=== PATIENT | female | born 1965 | race Hispanic/Latino ===

== ENCOUNTER 2018-11-05 15:49 | Emergency (ER) | payer OTHER ==
[2018-11-05 16:00] VITALS: RESP 16
--- NOTE | 2018-11-05 16:59 | US ---
Date of service: 11/05/2018 PROCEDURE: Bilateral lower extremity venous duplex Doppler. HISTORY: pain COMPARISON: None available. TECHNIQUE: Bilateral common femoral, superficial femoral, popliteal and posterior tibial veins were evaluated. Flow was assessed with color Doppler, compressibility, assessment of phasic flow and augmentation response. FINDINGS: COMMON FEMORAL VEIN: Right CFV: Unremarkable. Left CFV: Unremarkable. SUPERFICIAL FEMORAL VEIN: Right SFV: Unremarkable. Left SFV: Unremarkable. POPLITEAL VEIN: Right Popliteal: Unremarkable. Left Popliteal: Unremarkable. POSTERIOR TIBIAL VEIN: Right PTV: Unremarkable. Left PTV: Unremarkable. OTHER FINDINGS: None. IMPRESSION: No evidence of deep venous thrombosis.
--- NOTE | 2018-11-05 17:16 | ED PDOC ---
Lower Extremity Pain/Injury Time Seen by Provider: 11/05/18 15:58 Chief Complaint (Nursing): Lower Extremity Problem/Injury Chief Complaint (Provider): Lower Extremity Problem History Per: Patient History/Exam Limitations: no limitations Onset/Duration Of Symptoms: Days (2x) Current Symptoms Are (Timing): Still Present Severity: Moderate Additional Complaint(s): 53 year old female with a past medical history of hypertension presents to the ED for an evaluation of atraumatic pain behind the left knee that started yesterday. Patient was seen in a [facility] and was advised to be evaluated in the ED, prompting ED visit today. Patient denies having chest pain, shortness of breath, history of DVT or PE, hemoptysis, recent prolonged limb immobilization, recent surgeries, trauma, fevers, or rashes. PMD: None provided. Past Medical History Reviewed: Historical Data, Nursing Documentation, Vital Signs Vital Signs: Last Vital Signs Temp 98.0 F 11/05/18 15:55 Pulse 61 11/05/18 15:55 Resp 16 11/05/18 15:55 BP 136/70 11/05/18 15:55 Pulse Ox 97 11/05/18 15:55 CORY Report Viewed: Yes - Medical History PMH: HTN, Migraine - Surgical History Surgical History: Hernia Repair - Family History Family History: States: No Known Family Hx - Social History Current smoker - smoking cessation education provided: No Drugs: Denies - Immunization History Hx Tetanus Toxoid Vaccination: No Hx Influenza Vaccination: No Hx Pneumococcal Vaccination: No - Home Medications Home Medications: Ambulatory Orders Medication Instructions Recorded Amoxicillin/Clavulanate [Augmentin 1 tab PO BID #14 tab 12/21/15 875 MG-125 MG] - Allergies Allergies/Adverse Reactions: Allergies Allergy/AdvReac Type Severity Reaction Status Date / Time No Known Allergies Allergy Verified 12/21/15 13:18 Review of Systems ROS Statement: Except As Marked, All Systems Reviewed And Found Negative Constitutional: Negative for: Fever Cardiovascular: Negative for: Chest Pain Respiratory: Negative for: Shortness of Breath, Hemoptysis Musculoskeletal: Positive for: Other (pain behind left knee) Skin: Negative for: Rash Physical Exam - Reviewed Nursing Documentation Reviewed: Yes Vital Signs Reviewed: Yes - Physical Exam Appears: Positive for: Well, Non-toxic, No Acute Distress Head Exam: Positive for: ATRAUMATIC, NORMOCEPHALIC Skin: Positive for: Normal Color, Warm, Dry Pulses-Dorsalis Pedis (L): 2+ Pulses-Dorsalis Pedis (R): 2+ Extremity: Positive for: Other (bilateral lower extremities: (-) tenderness, (-) swelling, (-) deformities, (-) lesions. Full ROM actively of bilateral knees.) Neurological/Psych: Positive for: Awake, Alert, Oriented (3x) - ECG O2 Sat by Pulse Oximetry: 97 (RA) Pulse Ox Interpretation: Normal - CT Scan/US US duplex lower extrm vein bilat Other Rad Studies (CT/US): Read By Radiologist, Radiology Report Reviewed (see MDM note) Medical Decision Making Medical Decision Makin:58 Initial impression: 53 year old female with atraumatic knee pain Initial plan: * US duplex lower extrm vein bilat * reevaluation 16:56 US duplex lower extrm vein bilat read and reviewed by radiologist FINDINGS: COMMON FEMORAL VEIN: Right CFV: Unremarkable. Left CFV: Unremarkable. SUPERFICIAL FEMORAL VEIN: Right SFV: Unremarkable. Left SFV: Unremarkable. POPLITEAL VEIN: Right Popliteal: Unremarkable. Left Popliteal: Unremarkable. POSTERIOR TIBIAL VEIN: Right PTV: Unremarkable. Left PTV: Unremarkable. OTHER FINDINGS: None. IMPRESSION: No evidence of deep venous thrombosis. Scribe Attestation: Documented by Bri Luis, acting as a scribe for Jerad Nair Provider Scribe Attestation: All medical record entries made by the Scribe were at my direction and personally dictated by me. I have reviewed the chart and agree that the record accurately reflects my personal performance of the history, physical exam, medical decision making, and the department course for this patient. I have also personally directed, reviewed, and agree with the discharge instructions and disposition. Disposition - Clinical Impression Clinical Impression: Leg pain - Patient ED Disposition Is Patient to be Admitted: No - Disposition Referrals: [email or web address] [Outside] Disposition: Routine/Home Disposition Time: 17:00 Condition: STABLE Additional Instructions: KENNETH WILSON, thank you for letting us take care of you today. Your provider was Paulette Batres MD and you were treated for LT LEG PAIN. The emergency medical care you received today was directed at your acute symptoms. If you were prescribed any medication, please fill it and take as directed. It may take several days for your symptoms to resolve. Return to the Emergency Department if your symptoms worsen, do not improve, or if you have any other problems. Please contact your doctor or call one of the physicians/clinics you have been referred to that are listed on the Patient Visit Information form that is included in your discharge packet. Bring any paperwork you were given at discharge with you along with any medications you are taking to your follow up visit. Our treatment cannot replace ongoing medical care by a primary care provider outside of the emergency department. Thank you for allowing the [facility] team to be part of your care today. If you had an X-Ray or CT scan: A Radiologist will review the ED reading if any change in treatment is needed we will contact you. If you had a blood, urine, or wound culture: It will take several days for the results, if any change in treatment is needed we will contact you. If you had an STI test: It will take 48 hours for the results. Please call after 1 week if you have not heard back. Instructions: Muscle and Bone Pain (DC) Forms: [email or web address] ([place])
[2018-11-05 18:55] VITALS: BP 131/65; PULSE 60; TEMP 97.6; O2SAT 98
== END 2018-11-05 18:54 | disposition home or self-care (01) ==
LOC: H.ER 15:49
DX: M25.562 Pain in left knee (principal); I10 Essential (primary) hypertension